=== PATIENT | female | born 1970 | race Caucasian/White ===

== ENCOUNTER → 2017-01-13 | Outpatient (CLI) | payer MEDICARE, OTHER ==
--- NOTE | 2017-01-14 07:52 | MM ---
Reason for exam: screening (asymptomatic). Last mammogram was performed 1 year and 8 months ago. History: Patient is nulliparous. Took hormonal contraceptives for 2 years. Physical Findings: A clinical breast exam by your physician is recommended on an annual basis and results should be correlated with mammographic findings. MG 3D Screening Mammo W/Cad Bilateral CC and MLO view(s) were taken. Prior study comparison: May 01, 2015, bilateral MG screening mammo w CAD. November 22, 2013, bilateral MG screening mammo w CAD. The breast tissue is heterogeneously dense. This may lower the sensitivity of mammography. No significant changes when compared with prior studies. ASSESSMENT: Benign, BI-RAD 2 RECOMMENDATION: Routine screening mammogram of both breasts in 1 year.
== END | disposition home or self-care (01) ==
LOC: RADMAMWWP 13:09
PROVIDERS: ATTEND Family Medicine
DX: Z12.31 Encounter for screening mammogram for malignant neoplasm of breast (principal)
CPT/HCPCS: 77063; G0202

== ENCOUNTER → 2017-01-27 | Outpatient (CLI) | payer MEDICARE, OTHER ==
--- NOTE | 2017-01-28 12:51 | WWHP ---
DATE OF SERVICE: 01/27/2017 CHIEF COMPLAINT: The patient is here for her routine gynecologic exam. HPI: This is a 46-year-old G0 with an LMP of approximately 01/11/17. She is status post tubal ligation. She states it has been more than 5 years since her last pelvic exam. She states over the past year her periods have been irregular. She has a very difficulty time to describing how often her periods are coming. She states that it can be unpredictable, but cannot say how often they are coming. The patient is a poor historian and her adult foster care shell shop supervisor is also unable to describe the frequency of her periods. She states they can vary in flow. She states she is not sexually active. PAST MEDICAL HISTORY: Seizure disorder, anxiety, depression, chronic hypertension, glaucoma and limited mental capacity. MEDICATIONS: 1. Travatan eye drops q.h.s. 2. Nystatin daily p.r.n. 3. Fluconazole 150 mg once weekly. 4. Lisinopril 10 mg daily. 5. Paroxetine 50 mg q.h.s. 6. Zyprexa generic 2.5 mg q.h.s. 7. Bromocriptine 2.5 mg daily. 8. Levothyroxine 112 mcg daily. 9. Vitamin D 50,000 units weekly. 10. Cosopt drops b.i.d. 11. Loratadine 10 mg daily. 12. Simvastatin 20 mg daily. 13. Fluticasone nasal spray 1 spray in each nostril daily. 14. Depakote ER generic 500 mg b.i.d. 15. Keppra generic 500 mg q.i.d. 16. ProAir HFA 1 to 2 puffs daily. 17. Bactroban ointment p.r.n. 18. Ammonium lactate 12% lotion p.r.n. 19. Ibuprofen p.r.n. 20. Nystop powder p.r.n. 21. Fiber supplement b.i.d. 22. Cranberry supplement b.i.d. 23. Vitamin C 500 mg q.a.m. Allergies to PENICILLIN. PAST SURGICAL HISTORY: Tubal ligation in the past. 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 Periods were regular up until about 1 year ago when they became more irregular. She has no history of STDs. SOCIAL HISTORY: She denies tobacco, alcohol and drug use. She has been with her boyfriend for 4 years, but is not sexually active. FAMILY HISTORY: Grandmother had lung cancer and breast cancer. REVIEW OF SYSTEMS: She believes she has lost about 10 to 15 pounds and this was after her Zyprexa dose was decreased and she thinks it may be related to that. She denies respiratory, cardiac or GI problems. PHYSICAL EXAM: Blood pressure 121/70. Height 5 feet 0 inches. Weight 241 pounds. Temperature 97.9. Pulse 72. This is a well-developed, obese white female who is alert and oriented x3 in no acute distress. HEENT: The eyes reveal moderate strabismus. HEENT is otherwise within normal limits. NECK: Supple without mass or thyromegaly. CHEST AND LUNGS: Clear to auscultation. HEART: Regular rate and rhythm. Breasts are without mass or discharge. Axillary exam is negative for adenopathy. BACK: Negative for CVA tenderness. ABDOMEN: Obese, soft, nontender without palpable masses. PELVIC EXAM: Normal external genitalia. Cervix and vagina reveal mild atrophy without lesions. The cervix appears somewhat stenotic secondary to atrophy. There is no unusual discharge. There is no cervical motion tenderness. The uterus is mid position, nongravid size and nontender. There are no palpable adnexal masses or tenderness. Rectal exam is negative for mass or tenderness and is negative for occult blood. EXTREMITIES: Nontender. IMPRESSION: 1. A 46-year-old perimenopausal female with some menstrual irregularity during the past. 2. The patient is a poor historian and has a difficult time describing her menstrual periods. 3. Multiple medical problems. PLAN: 1. Pap smear was performed. 2. Self-breast examination was discussed. 3. Mammogram was done on 01/13/17 and was benign and she will repeat this in one year. 4. The patient will keep a menstrual calendar. I have explained this to the patient and her foster care shell shop supervisor. She will return if she is having menstrual problems. 5. She will return in one year. [facility]ENTERBet[facility]
== END ==
LOC: WWCWWP 13:20
PROVIDERS: ATTEND Obstetrics & Gynecology
DX: Z01.419 Encounter for gynecological examination (general) (routine) without abnormal findings (principal)

== ENCOUNTER 2017-06-11 14:04 | Emergency (ER) | payer MEDICARE, OTHER ==
[2017-06-11] MEDS ORDERED: levETIRAcetam 500 MG TAB PO STA (15:37)
--- NOTE | 2017-06-11 16:18 | ED ---
GI Bleed HPI - General Chief complaint: GI Bleed Stated complaint: Rectrum bleeding Time Seen by Provider: 06/11/17 14:59 Source: patient Mode of arrival: ambulatory Limitations: altered mental status, physical limitation - History of Present Illness Initial comments: 47-year-old female with past medical history as noted below specifically for external hemorrhage presented for evaluation of rectal bleeding. She states that she had a large hard bowel movement which resulted in blood from the rectum. 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 This worried her and she came to the ED for further evaluation. She states that this is happened previously as well and she was treated as an outpatient. The bleeding has since stopped. - Related Data Home Medications Medication Instructions Recorded Confirmed Ascorbic Acid [Vitamin C] 500 mg PO DAILY 12/12/13 06/11/17 Bromocriptine Mesylate 2.5 mg PO DAILY 12/12/13 06/11/17 Cranberry Conc/C/Bacill Coag 1 tab PO BID 12/12/13 06/11/17 [Cranberry Tablet] Divalproex Sodium [Depakote ER] 500 mg PO BID 12/12/13 06/11/17 Travoprost [Travatan Z] 1 drop BOTH EYES HS 12/12/13 06/11/17 levETIRAcetam [Keppra] 500 mg PO QID 12/12/13 06/11/17 Spironolactone 50 mg PO DAILY 08/24/14 06/11/17 OLANZapine [ZyPREXA] 5 mg PO HS 12/18/14 06/11/17 Albuterol Sulfate [Proair Hfa] 1 - 2 puff INHALATION Q6HR PRN 06/11/17 06/11/17 Ammonium Lactate Lotion 1 applic TOPICAL DAILY PRN 06/11/17 06/11/17 [Lac-Hydrin 12% Lotion] Calcium Polycarbophil [Fibercon] 625 mg PO BID 06/11/17 06/11/17 Dorzolamide-Timolol 2%/0.5% 1 drop BOTH EYES BID 06/11/17 06/11/17 [dorzolamide-Timolol 2%/0.5%] Ergocalciferol (Vitamin D2) 50,000 unit PO SOTO 06/11/17 06/11/17 [Vitamin D2] Fluticasone Nasal [place] [Flonase 1 spray EA NOSTRIL DAILY 06/11/17 06/11/17 Nasal [place]] Ibuprofen [Motrin] 600 mg PO BID PRN 06/11/17 06/11/17 Levothyroxine Sodium [Synthroid] 112 mcg PO DAILY 06/11/17 06/11/17 Lisinopril [Prinivil] 10 mg PO HS 06/11/17 06/11/17 Loratadine [Claritin] 10 mg PO DAILY 06/11/17 06/11/17 Mupirocin 2% Oint [Bactroban 2% 1 applic TOPICAL BID PRN 06/11/17 06/11/17 Oint] Nystatin 100,000Unit/gm Cream 1 applic TOPICAL DAILY PRN 06/11/17 06/11/17 [Mycostatin Cream] PARoxetine HCL [Paxil] 30 mg PO HS 06/11/17 06/11/17 Simvastatin [Zocor] 20 mg PO HS 06/11/17 06/11/17 Previous Rx's Medication Instructions Recorded Docusate [Colace] 100 mg PO DAILY #20 capsule 06/11/17 Allergies Allergy/AdvReac Type Severity Reaction Status Date / Time Penicillins Allergy Rash/Hives Verified 06/11/17 15:24 quetiapine fumarate Allergy Anaphylaxis, Verified 06/11/17 15:24 [From Seroquel] SEIZURE Review of Systems ROS Statement: Those systems with pertinent positive or pertinent negative responses have been documented in the HPI. ROS Other: All systems not noted in ROS Statement are negative. Constitutional: Denies: fever, chills Eyes: Denies: eye pain, eye discharge ENT: Denies: ear pain, throat pain Respiratory: Denies: cough, dyspnea Cardiovascular: Denies: chest pain, palpitations Gastrointestinal: Reports: other (External hemorrhoids and hemorrhoid bleeding) . Denies: abdominal pain, nausea, vomiting Musculoskeletal: Denies: back pain, myalgia Neurological: Denies: headache, weakness Past Medical History Past Medical History: GI Bleed, Memory Impairment, Seizure Disorder History of Any Multi-Drug Resistant Organisms: None Reported Past Surgical History: Cholecystectomy, Tubal Ligation Past Anesthesia/Blood Transfusion Reactions: No Reported Reaction Past Psychological History: Anxiety, Depression, PTSD Smoking Status: Never smoker Past Alcohol Use History: None Reported Past Drug Use History: None Reported - Past Family History Mother Family Medical History: No Reported History Additional Family Medical History / Comment(s): BRAIN ANEURYSM General Exam Limitations: altered mental status, physical limitation General appearance: alert, in no apparent distress Head exam: Present: atraumatic, normocephalic, normal inspection Eye exam: Present: normal appearance, PERRL, EOMI. Absent: scleral icterus, conjunctival injection, periorbital swelling Respiratory exam: Present: normal lung sounds bilaterally. Absent: respiratory distress, wheezes, rales, rhonchi, stridor Cardiovascular Exam: Present: regular rate, normal rhythm, normal heart sounds. Absent: systolic murmur, diastolic murmur, rubs, gallop, clicks GI/Abdominal exam: Present: soft, normal bowel sounds. Absent: distended, tenderness, guarding, rebound, rigid Rectal exam: Present: hemorrhoids (External with one open hemorrhoid, bleeding controlled; this hemorrhage is not thrombosed or requiring excision) Extremities exam: Present: normal inspection, full ROM, normal capillary refill. Absent: tenderness, pedal edema, joint swelling, calf tenderness Back exam: Present: normal inspection Psychiatric exam: Present: normal affect, normal mood Skin exam: Present: warm, dry, intact, normal color. Absent: rash Course Vital Signs 06/11/17 06/11/17 14:24 16:29 Temperature 98.1 F 98.2 F Pulse Rate 93 76 Respiratory 17 18 Rate Blood Pressure 110/66 118/71 O2 Sat by Pulse 95 98 Oximetry Medical Decision Making - Medical Decision Making 47-year-old female with past medical history of external hemorrhage presented for evaluation of rectal bleeding. On physical examination there is an external hemorrhoid that is newly clotted over and likely the source of her bleeding. The remainder of her physical exam is benign. Bleeding is likely secondary to her large and firm bowel movement that she states occurred just prior to the rectal bleeding. She was informed of this and advised to perform sitz baths 4-5 times a day and that she would be prescribed stool softeners. Further advised follow-up with her primary care physician. Her primary care physician was contacted and stated that he would follow-up for next week. The patient was informed of this and agreed with this plan of care. Disposition Clinical Impression: External hemorrhoid, bleeding Disposition: HOME SELF-CARE Condition: Stable Instructions: Hemorrhoids (ED), Rectal Bleeding (ED) Additional Instructions: Please use medication as discussed. Please follow up with family doctor if symptoms have not improved over the next two days. Please return to the emergency room if your symptoms increase or worsen or for any other concerns. Discussed the proper procedures for sitz baths and what should be obtained in order to her them with your primary care physician. Prescriptions: Docusate [Colace] 100 mg PO DAILY #20 capsule Referrals: Abhishek Plata PAC [Primary Care Provider] - 1-2 days Time of Disposition: 16:18
[2017-06-11 16:30] VITALS: BP 118/71; PULSE 76; RESP 18; TEMP 98.2
== END 2017-06-11 16:30 | disposition home or self-care (01) ==
LOC: EC 14:04
DX: K64.4 Residual hemorrhoidal skin tags (principal); R41.82 Altered mental status, unspecified; G40.909 Epilepsy, unspecified, not intractable, without status epilepticus; F32.9 Major depressive disorder, single episode, unspecified; F41.9 Anxiety disorder, unspecified; F43.10 Post-traumatic stress disorder, unspecified; Z79.51 Long term (current) use of inhaled steroids; Z79.899 Other long term (current) drug therapy; Z88.0 Allergy status to penicillin; Z88.8 Allergy status to other drugs, medicaments and biological substances
CPT/HCPCS: 99284

== ENCOUNTER 2017-12-17 16:50 | Emergency (ER) | payer MEDICARE, OTHER ==
[2017-12-17 17:04] VITALS: RESP 18
[2017-12-17] MEDS ORDERED: SODIUM CHLORIDE 0.9% 500 ML IV STA (17:18)
--- NOTE | 2017-12-17 17:23 | ED ---
Seizure HPI - General Chief Complaint: Seizure Stated Complaint: seizure Time Seen by Provider: 12/17/17 17:05 Source: EMS Mode of arrival: EMS Limitations: no limitations - History of Present Illness Initial Comments: 47-year-old female patient with past medical history significant for seizures, pseudoseizures, and develop mental disability presents to the emergency department today for possible seizure. Patient is a somewhat poor historian. She states that [place] on the city bus when bystanders reported she began shaking and slid to the floor. Patient states she does not remember the incident. She denies any loss of bowel or bladder control with this. States that she does have a mild frontal headache at this time. States that she has fallen several times over the last couple of months because she is unsteady and has to use a cane. She states that she has been getting frequent headaches. She denies any numbness or tingling, nausea, vomiting, weakness, blurred vision , or double vision. She does take Keppra for seizures, states that she lives at an adult foster care and they do dispense her medications. Patient states that she has not had a period for the last 3 months however I does have a history of tubal ligation. She denies any drug or alcohol use. Patient denies any recent rash, fever, chills, shortness breath, chest pain, abdominal pain, diarrhea, constipation, back pain, hematuria, dysuria, urinary urgency, urinary frequency, or any other complaints. - Related Data Home Medications Medication Instructions Recorded Confirmed Ascorbic Acid [Vitamin C] 500 mg PO DAILY 12/12/13 12/17/17 Bromocriptine Mesylate 2.5 mg PO DAILY 12/12/13 12/17/17 Cranberry Conc/C/Bacill Coag 1 tab PO BID 12/12/13 12/17/17 [Cranberry Tablet] Divalproex Sodium [Depakote ER] 500 mg PO BID 12/12/13 12/17/17 Travoprost [Travatan Z] 1 drop BOTH EYES 12/12/13 12/17/17 levETIRAcetam [Keppra] 500 mg PO QID 12/12/13 12/17/17 Spironolactone 50 mg PO DAILY 08/24/14 12/17/17 OLANZapine [ZyPREXA] 5 mg PO HS 12/18/14 12/17/17 Albuterol Sulfate [Proair Hfa] 1 - 2 puff INHALATION RT-DAILY PRN 06/11/1712/17 Ammonium Lactate Lotion 1 applic TOPICAL DAILY PRN 06/11/17 12/17/17 [Lac-Hydrin 12% Lotion] Calcium Polycarbophil [Fibercon] 625 mg PO BID 06/11/17 12/17/17 Dorzolamide-Timolol 2%/0.5% 1 drop BOTH EYES BID 06/11/17 12/17/17 [dorzolamide-Timolol 2%/0.5%] Ergocalciferol (Vitamin D2) 50,000 unit PO SOTO 06/11/17 12/17/17 [Vitamin D2] Fluticasone Nasal [place] [Flonase 1 spray EA NOSTRIL DAILY 06/11/17 12/17/17 Nasal [place]] Ibuprofen [Motrin] 600 mg PO BID PRN 06/11/17 12/17/17 Levothyroxine Sodium [Synthroid] 112 mcg PO DAILY 06/11/17 12/17/17 Lisinopril [Prinivil] 10 mg PO HS 06/11/17 12/17/17 Loratadine [Claritin] 10 mg PO DAILY 06/11/17 12/17/17 Mupirocin 2% Oint [Bactroban 2% 1 applic TOPICAL BID PRN 06/11/17 12/17/17 Oint] Nystatin 100,000Unit/gm Cream 1 applic TOPICAL HS PRN 06/11/17 12/17/17 [Mycostatin Cream] PARoxetine HCL [Paxil] 30 mg PO HS 06/11/17 12/17/17 Simvastatin [Zocor] 20 mg PO HS 06/11/17 12/17/17 Allergies Allergy/AdvReac Type Severity Reaction Status Date / Time Penicillins Allergy Rash/Hives Verified 12/17/17 17:09 quetiapine fumarate Allergy Anaphylaxis, Verified 12/17/17 17:09 [From Seroquel] SEIZURE Review of Systems ROS Statement: Those systems with pertinent positive or pertinent negative responses have been documented in the HPI. ROS Other: All systems not noted in ROS Statement are negative. Past Medical History Past Medical History: GI Bleed, Memory Impairment, Seizure Disorder History of Any Multi-Drug Resistant Organisms: None Reported Past Surgical History: Cholecystectomy, Tubal Ligation Past Anesthesia/Blood Transfusion Reactions: No Reported Reaction Past Psychological History: Anxiety, Depression, PTSD Smoking Status: Never smoker Past Alcohol Use History: None Reported Past Drug Use History: None Reported - Past Family History Mother Family Medical History: No Reported History Additional Family Medical History / Comment(s): BRAIN ANEURYSM General Exam Limitations: no limitations General appearance: alert, in no apparent distress, other (This is a well- developed, obese adult female patient in no acute distress. Vital signs upon presentation are temperature 96.4F, pulse 78, respirations 18, blood pressure 123/76, pulse ox 97% on room air.) Head exam: Present: atraumatic, normocephalic, normal inspection Eye exam: Present: normal appearance, PERRL, EOMI. Absent: scleral icterus, conjunctival injection, nystagmus, periorbital swelling ENT exam: Present: normal exam, normal oropharynx, mucous membranes moist Respiratory exam: Present: normal lung sounds bilaterally. Absent: respiratory distress, wheezes, rales, rhonchi, stridor Cardiovascular Exam: Present: regular rate, normal rhythm, normal heart sounds. Absent: systolic murmur, diastolic murmur, rubs, gallop, clicks GI/Abdominal exam: Present: soft, normal bowel sounds. Absent: distended, tenderness, guarding, rebound, rigid Neurological exam: Present: alert, oriented X3, CN II-XII intact Expanded Speech: Present: fluid speech Cranial nerves: EOM's Intact: Normal, Nystagmus: Normal Motor strength exam: RUE: 5, LUE: 5, RLE: 5, LLE: 5 Psychiatric exam: Present: anxious Skin exam: Present: warm, dry, intact, normal color. Absent: rash Course Vital Signs 12/17/17 16:53 Temperature 96.4 F L Pulse Rate 78 Respiratory 18 Rate Blood Pressure 123/76 O2 Sat by Pulse 97 Oximetry Medical Decision Making - Medical Decision Making 47-year-old female patient presents to the emergency department today for evaluation after having a seizure. Physical examination is unremarkable. Patient is neurologically intact. Labs reviewed and are unremarkable. Urinalysis is negative for any infection. Drug screen is negative. We did perform CT of the brain due to patient's complaint of frontal headaches and frequent falls recently. 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 I did discuss findings and results with the patient. She will be discharged back to her adult foster care. She is instructed to follow-up with a neurologist for further evaluation, she sees Dr. Dodson. She is instructed to follow-up with her primary care physician for recheck in 1-2 days. Return parameters discussed in detail. She verbalizes understanding and agrees with this plan. Guardian will be updated. - Lab Data Result diagrams: 12/17/17 17:06 12/17/17 17:06 Lab Results 12/17/17 12/17/17 12/17/17 Range/Units 17:06 17:06 18:50 WBC 7.0 (3.8-10.6) k/uL RBC 3.95 (3.80-5.40) m/uL Hgb 12.3 (11.4-16.0) gm/dL Hct 36.5 (34.0-46.0) % MCV 92.3 (80.0-100.0) fL MCH 31.2 (25.0-35.0) pg MCHC 33.7 (31.0-37.0) g/dL RDW 12.4 (11.5-15.5) % Plt Count 189 (150-450) k/uL Neutrophils % 50 % Lymphocytes % 42 % Monocytes % 6 % Eosinophils % 1 % Basophils % 0 % Neutrophils # 3.5 (1.3-7.7) k/uL Lymphocytes # 2.9 (1.0-4.8) k/uL Monocytes # 0.4 (0-1.0) k/uL Eosinophils # 0.0 (0-0.7) k/uL Basophils # 0.0 (0-0.2) k/uL Sodium 139 (137-145) mmol/L Potassium 4.3 (3.5-5.1) mmol/L Chloride 103 (98-107) mmol/L Carbon Dioxide 23 (22-30) mmol/L Anion Gap 13 mmol/L BUN 15 (7-17) mg/dL Creatinine 0.70 (0.52-1.04) mg/dL Est GFR (CKD-EPI)AfAm >90 (>60 ml/min/1.73 sqM) Est GFR (CKD-EPI)NonAf >90 (>60 ml/min/1.73 sqM) Glucose 91 (74-99) mg/dL Calcium 9.1 (8.4-10.2) mg/dL Total Bilirubin 0.3 (0.2-1.3) mg/dL AST 20 (14-36) U/L ALT 23 (9-52) U/L Alkaline Phosphatase 45 (38-126) U/L Total Protein 7.1 (6.3-8.2) g/dL Albumin 4.1 (3.5-5.0) g/dL Urine Color Yellow Urine Appearance Cloudy H (Clear) Urine pH 5.5 (5.0-8.0) Ur Specific [place] 1.019 (1.001-1.035) Urine Protein Negative (Negative) Urine Glucose (UA) Negative (Negative) Urine Ketones Trace H (Negative) Urine Blood Negative (Negative) Urine Nitrite Negative (Negative) Urine Bilirubin Negative (Negative) Urine Urobilinogen <2.0 (<2.0) mg/dL Ur Leukocyte Esterase Trace H (Negative) Urine WBC 2 (0-5) /hpf Ur Squamous Epith Cells 4 (0-4) /hpf Urine Mucus Rare H (None) /hpf Urine HCG, Qual (Not Detectd) Urine Opiates Screen Not Detected (NotDetected) Ur Oxycodone Screen Not Detected (NotDetected) Urine Methadone Screen Not Detected (NotDetected) Ur Propoxyphene Screen Not Detected (NotDetected) Ur Barbiturates Screen Not Detected (NotDetected) U Tricyclic Antidepress Not Detected (NotDetected) Ur Phencyclidine Scrn Not Detected (NotDetected) Ur Amphetamines Screen Not Detected (NotDetected) U Methamphetamines Scrn Not Detected (NotDetected) U Benzodiazepines Scrn Not Detected (NotDetected) Urine Cocaine Screen Not Detected (NotDetected) U Marijuana (THC) Screen Not Detected (NotDetected) 12/17/17 Range/Units 18:50 WBC (3.8-10.6) k/uL RBC (3.80-5.40) m/uL Hgb (11.4-16.0) gm/dL Hct (34.0-46.0) % MCV (80.0-100.0) fL MCH (25.0-35.0) pg MCHC (31.0-37.0) g/dL RDW (11.5-15.5) % Plt Count (150-450) k/uL Neutrophils % % Lymphocytes % % Monocytes % % Eosinophils % % Basophils % % Neutrophils # (1.3-7.7) k/uL Lymphocytes # (1.0-4.8) k/uL Monocytes # (0-1.0) k/uL Eosinophils # (0-0.7) k/uL Basophils # (0-0.2) k/uL Sodium (137-145) mmol/L Potassium (3.5-5.1) mmol/L Chloride (98-107) mmol/L Carbon Dioxide (22-30) mmol/L Anion Gap mmol/L BUN (7-17) mg/dL Creatinine (0.52-1.04) mg/dL Est GFR (CKD-EPI)AfAm (>60 ml/min/1.73 sqM) Est GFR (CKD-EPI)NonAf (>60 ml/min/1.73 sqM) Glucose (74-99) mg/dL Calcium (8.4-10.2) mg/dL Total Bilirubin (0.2-1.3) mg/dL AST (14-36) U/L ALT (9-52) U/L Alkaline Phosphatase (38-126) U/L Total Protein (6.3-8.2) g/dL Albumin (3.5-5.0) g/dL Urine Color Urine Appearance (Clear) Urine pH (5.0-8.0) Ur Specific [place] (1.001-1.035) Urine Protein (Negative) Urine Glucose (UA) (Negative) Urine Ketones (Negative) Urine Blood (Negative) Urine Nitrite (Negative) Urine Bilirubin (Negative) Urine Urobilinogen (<2.0) mg/dL Ur Leukocyte Esterase (Negative) Urine WBC (0-5) /hpf Ur Squamous Epith Cells (0-4) /hpf Urine Mucus (None) /hpf Urine HCG, Qual Not Detected (Not Detectd) Urine Opiates Screen (NotDetected) Ur Oxycodone Screen (NotDetected) Urine Methadone Screen (NotDetected) Ur Propoxyphene Screen (NotDetected) Ur Barbiturates Screen (NotDetected) U Tricyclic Antidepress (NotDetected) Ur Phencyclidine Scrn (NotDetected) Ur Amphetamines Screen (NotDetected) U Methamphetamines Scrn (NotDetected) U Benzodiazepines Scrn (NotDetected) Urine Cocaine Screen (NotDetected) U Marijuana (THC) Screen (NotDetected) - EKG Data -: EKG Interpreted by Me EKG Comments: EKG obtained at 1737 shows normal sinus rhythm with a ventricular rate is 78, NH interval 138, QR presybeterian 72, QT 376, QTc 428. No evidence of ST elevation or depression, no ectopy. - Radiology Data Radiology results: report reviewed, image reviewed CT of the head without contrast was performed. 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 There is encephalomalacia also on the left temporal lobe and parietal lobe. There is no midline shift. There is no evidence of intracranial hemorrhage. Calvarium is intact. Impression by Dr. Kam shows bilateral temporal lobe and parietal lobe encephalomalacia. No acute intracranial abnormality. Disposition Clinical Impression: Seizure Disposition: HOME SELF-CARE Condition: Good Instructions: Recurrent Seizures in Adults (ED) Additional Instructions: Follow-up with the primary care physician for recheck in 1-2 days. Continue taking medications as directed. Follow-up with your primary care physician for recheck in 1-2 days. Return here immediately for any new, worsening, or concerning symptoms. Is patient prescribed a controlled substance at d/c from ED?: No Referrals: Abhishek Elise MD [Primary Care Provider] - 1-2 days Time of Disposition: 19:19
[2017-12-17 17:37] LABS: Basophils % (A) 0 %; Eosinophils % (A) 1 %; HCT 36.5 % (34.0-46.0); HGB 12.3 gm/dL (11.4-16.0); Lymphocytes # (A) 2.9 k/uL (1.0-4.8); Lymphocytes % (A) 42 %; MCH 31.2 pg (25.0-35.0); MCHC 33.7 g/dL (31.0-37.0); MCV 92.3 fL (80.0-100.0); Mean Platelet Volume 8.9; Monocytes # (A) 0.4 k/uL (0-1.0); Monocytes % (A) 6 %; Neutrophils # (A) 3.5 k/uL (1.3-7.7); Neutrophils % (A) 50 %; Platelet Count 189 k/uL (150-450); RBC 3.95 m/uL (3.80-5.40); RDW 12.4 % (11.5-15.5)
[2017-12-17 17:49] LABS: ALT 23 U/L (9-52); AST 20 U/L (14-36); Albumin 4.1 g/dL (3.5-5.0); Alkaline Phosphatase 45 U/L (38-126); Anion Gap 13 mmol/L; Blood Urea Nitrogen 15 mg/dL (7-17); Calcium 9.1 mg/dL (8.4-10.2); Carbon Dioxide 23 mmol/L (22-30); Chloride 103 mmol/L (98-107); Glucose 91 mg/dL (74-99); Potassium 4.3 mmol/L (3.5-5.1); Sodium 139 mmol/L (137-145); Total Bilirubin 0.3 mg/dL (0.2-1.3); Total Protein 7.1 g/dL (6.3-8.2)
--- NOTE | 2017-12-17 18:25 | CT ---
EXAMINATION TYPE: CT brain wo con DATE OF EXAM: 12/17/2017 COMPARISON: NONE HISTORY: Seizure activity. CT DLP: 1121 mGycm. Automated Exposure Control for Dose Reduction was Utilized. TECHNIQUE: CT scan of the head is performed without contrast. 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 There is encephalomalacia also in the left temporal l obe and parietal lobe. There is no midline shift. There is no evidence of intracranial hemorrhage. Ca lvarium is intact. IMPRESSION: Bilateral temporal lobe and parietal lobe encephalomalacia. No acute intracranial abnormality.
[2017-12-17 18:55] LABS: Appearance,Urine Cloudy (Clear); Bilirubin,Urine Negative (Negative); Blood,Urine Negative (Negative); Color,Urine Yellow; Glucose,Urine (UA) Negative (Negative); Ketones,Urine Trace (Negative); Leukocyte Esterase,Urine Trace (Negative); Mucus,Urine Rare /hpf; Nitrite,Urine Negative (Negative); PH, Urine 5.5 (5.0-8.0); Protein,Urine Negative (Negative); Specific Gravity,Urine 1.019 (1.001-1.035); Squamous Epithelial Cell,Urine 4 /hpf (0-4); Urobilinogen,Urine <2.0 mg/dL (<2.0); WBC,Urine 2 /hpf (0-5)
[2017-12-17 19:03] LABS: Amphetamine Screen,Urine Not Detected (NotDetected); Barbiturate Screen,Urine Not Detected (NotDetected); Benzodiazepines Screen,Urine Not Detected (NotDetected); Cocaine Screen,Urine Not Detected (NotDetected); Methadone Screen, Urine Not Detected (NotDetected); Opiate Screen,Urine Not Detected (NotDetected); Oxycodone Screen, Urine Not Detected (NotDetected); Phencyclidine Screen,Urine Not Detected (NotDetected); Tricyclic Antidepressant,Urine Not Detected (NotDetected); Urn Cannabinoid Scrn Not Detected (NotDetected)
[2017-12-17] MEDS ORDERED: levETIRAcetam 500 MG TAB PO STA (19:18)
[2017-12-17 19:56] VITALS: BP 121/64; PULSE 90; TEMP 98
== END 2017-12-17 20:00 | disposition home or self-care (01) ==
LOC: EC 16:50 → SUPCPDRO 16:50 → EC 20:00
DX: G40.909 Epilepsy, unspecified, not intractable, without status epilepticus (principal); F32.9 Major depressive disorder, single episode, unspecified; F41.9 Anxiety disorder, unspecified; F43.10 Post-traumatic stress disorder, unspecified; Z79.51 Long term (current) use of inhaled steroids; Z79.899 Other long term (current) drug therapy; Z88.0 Allergy status to penicillin; Z88.8 Allergy status to other drugs, medicaments and biological substances
CPT/HCPCS: 36415; 70450; 80053; 80177; 80306; 81001; 81025; 85025; 93005; 96360; 96361; 99285

== ENCOUNTER → 2018-06-24 | Outpatient (CLI) | payer MEDICARE, OTHER ==
--- NOTE | 2018-07-01 14:26 | MM ---
Reason for exam: screening (asymptomatic). Last mammogram was performed 1 year and 5 months ago. History: Patient is nulliparous. Took hormonal contraceptives for 2 years. MG 3D Screening Mammo W/Cad Bilateral CC and MLO view(s) were taken. Prior study comparison: January 13, 2017, bilateral MG 3d screening mammo w/cad. May 01, 2015, bilateral MG screening mammo w CAD. The breast tissue is heterogeneously dense. This may lower the sensitivity of mammography. No significant changes when compared with prior studies. ASSESSMENT: Benign, BI-RAD 2 RECOMMENDATION: Routine screening mammogram of both breasts in 1 year.
== END | disposition home or self-care (01) ==
LOC: RADMAMWWP 10:47
PROVIDERS: ATTEND Physician Assistant Medical
DX: Z12.31 Encounter for screening mammogram for malignant neoplasm of breast (principal)
CPT/HCPCS: 77063; 77067

== ENCOUNTER → 2018-08-03 | Outpatient (CLI) | payer MEDICARE, OTHER ==
[2018-08-03 15:49] VITALS: BP 112/75; PULSE 75; RESP 18; TEMP 97.9; BMI 43.1
--- NOTE | 2018-08-03 17:14 | P.HPOB ---
History of Present Illness H&P Date: 08/03/18 Chief Complaint: The patient is here for her routine gynecologic exam. This is a 48-year-old G0 with an LMP of April 2018. The patient's menses have been coming less frequently. In 2018 she states she had menstrual periods in July, August, September, and April. She denies hot flashes. She is without gynecologic complaints. She has not been sexually active for many years. Review of Systems She has lost 20 pounds over the last one and half years. She denies respiratory , cardiac or G.I. problems. Past Medical History Past Medical History: GI Bleed, Hypertension, Memory Impairment, Seizure Disorder Additional Past Medical History / Comment(s): Mental disability. Glaucoma. 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 History of Any Multi-Drug Resistant Organisms: None Reported Past Surgical History: Cholecystectomy, Tubal Ligation Past Anesthesia/Blood Transfusion Reactions: No Reported Reaction Past Psychological History: Anxiety, Depression, PTSD Smoking Status: Never smoker Past Alcohol Use History: None Reported Past Drug Use History: None Reported - Past Family History Mother Family Medical History: No Reported History Additional Family Medical History / Comment(s): BRAIN ANEURYSM. Grandmother had lung and breast cancer. Medications and Allergies Home Medications Medication Instructions Recorded Confirmed Type Ascorbic Acid [Vitamin C] 500 mg PO DAILY 12/12/13 08/03/18 History Bromocriptine Mesylate 2.5 mg PO DAILY 12/12/13 08/03/18 History Cranberry Conc/C/Bacill Coag 1 tab PO BID 12/12/13 08/03/18 History [Cranberry Tablet] Divalproex Sodium [Depakote ER] 500 mg PO BID 12/12/13 08/03/18 History Travoprost [Travatan Z] 1 drop BOTH EYES HS 12/12/13 08/03/18 History levETIRAcetam [Keppra] 500 mg PO QID 12/12/13 08/03/18 History Spironolactone 50 mg PO DAILY 08/24/14 08/03/18 History OLANZapine [ZyPREXA] 5 mg PO HS 12/18/14 08/03/18 History Albuterol Sulfate [Proair Hfa] 1 - 2 puff INHALATION RT-DAILY PRN 06/11/1708/03 History Ammonium Lactate Lotion 1 applic TOPICAL DAILY PRN 06/11/17 08/03/18 History [Lac-Hydrin 12% Lotion] Calcium Polycarbophil [Fibercon] 625 mg PO BID 06/11/17 08/03/18 History Dorzolamide-Timol 2.23%/0.68% 1 drop BOTH EYES BID 06/11/17 08/03/18 History [dorzolamide-Timolol 2%/0.5%] Ergocalciferol (Vitamin D2) 50,000 unit PO SOTO 06/11/17 08/03/18 History [Vitamin D2] Fluticasone Nasal [place] [Flonase 1 spray EA NOSTRIL DAILY 06/11/17 08/03/18 History Nasal [place]] Ibuprofen [Motrin] 600 mg PO BID PRN 06/11/17 08/03/18 History Levothyroxine Sodium [Synthroid] 112 mcg PO DAILY 06/11/17 08/03/18 History Lisinopril [Prinivil] 10 mg PO HS 06/11/17 08/03/18 History Loratadine [Claritin] 10 mg PO DAILY 06/11/17 08/03/18 History Mupirocin 2% Oint [Bactroban 2% 1 applic TOPICAL BID PRN 06/11/17 08/03/18 History Oint] Nystatin 100,000Unit/gm Cream 1 applic TOPICAL HS PRN 06/11/17 08/03/18 History [Mycostatin Cream] PARoxetine HCL [Paxil] 30 mg PO HS 06/11/17 08/03/18 History Simvastatin [Zocor] 20 mg PO HS 06/11/17 08/03/18 History ARIPiprazole [Abilify] 2 mg PO DAILY 08/03/18 08/03/18 History Albuterol Sulfate [Proair Hfa] 1 - 2 puff INHALATION Q6HR PRN 08/03/18 08/03/18 History Ammonium Lactate Lotion 1 applic TOPICAL BID 08/03/18 08/03/18 History [Lac-Hydrin 12% Lotion] Docusate [Colace] 100 mg PO DAILY 08/03/18 08/03/18 History OLANZapine [ZyPREXA] 2.5 mg PO HS 08/03/18 08/03/18 History Allergies Allergy/AdvReac Type Severity Reaction Status Date / Time Penicillins Allergy Rash/Hives Verified 08/03/18 15:50 quetiapine fumarate Allergy Anaphylaxis, Verified 08/03/18 15:50 [From Seroquel] SEIZURE Exam Vital Signs Temp Pulse Resp BP Pulse Ox 08/03/18 15:42 97.9 F 75 18 112/75 100 Intake and Output 08/03/18 08/03/18 08/03/18 06:59 14:59 22:59 Other: Weight 100.244 kg Height 5'0", weight 221 pounds, BMI 43.2. This is a well-developed well-nourished obese white female who is alert and oriented times 3 in no acute distress. HEENT: eyes are not in line. HEENT is otherwise within normal limits. NECK: Supple without mass or thyromegaly. CHEST AND LUNGS: Clear to auscultation. HEART: Regular rate and rhythm. BREASTS: Are without mass or discharge. AXILLARY EXAM: Negative for adenopathy. BACK: Negative for CVA tenderness. ABDOMEN: Soft, obese, nontender, without palpable masses. PELVIC EXAM: Normal external genitalia. Cervix and vagina appear normal. There is no unusual discharge. There is no evidence of prolapse. The uterus is midposition, nongravid size and nontender. There are no palpable adnexal masses or tenderness. Bimanual examination is somewhat limited secondary to her size. RECTAL EXAM: rectovaginal exam is negative for mass or tenderness and is negative for occult blood. EXTREMITIES: Nontender. IMPRESSION: 1. 48-year-old perimenopausal female with oligomenorrhea. 2. Obesity 3. Multiple medical problems. PLAN: 1. Pap smear was deferred since she had a normal one less than 2 years ago. 2. Self breast awareness was discussed with the patient. 3. Mammogram was recently done on 06/24/2018 and was benign. 4. She will keep a menstrual calendar. She will call of problems. 5. Osteoporosis prevention was discussed. I have stressed the importance of adequate calcium, vitamin D and regular exercise. Recommended amounts of calcium and vitamin D were also discussed. 6. She will return in one year.
== END | disposition home or self-care (01) ==
LOC: WWCWWP 14:45
PROVIDERS: ATTEND Obstetrics & Gynecology
DX: Z53.9 Procedure and treatment not carried out, unspecified reason (principal)

== ENCOUNTER → 2019-08-16 | Outpatient (CLI) | payer MEDICARE, OTHER ==
[2019-08-16 10:35] LABS: Basophils % (A) 0 %; Eosinophils % (A) 1 %; HCT 37.8 % (34.0-46.0); HGB 12.5 gm/dL (11.4-16.0); Lymphocytes % (A) 38 %; MCH 30.7 pg (25.0-35.0); MCV 93.2 fL (80.0-100.0); Mean Platelet Volume 9.1; Monocytes # (A) 0.3 k/uL (0-1.0); Monocytes % (A) 5 %; Neutrophils # (A) 2.8 k/uL (1.3-7.7); Neutrophils % (A) 54 %; Platelet Count 209 k/uL (150-450); RBC 4.06 m/uL (3.80-5.40); RDW 11.9 % (11.5-15.5); WBC 5.3 k/uL (3.8-10.6)
[2019-08-16 17:03] LABS: ALT 14 U/L (8-44); AST 15 U/L (13-35); Albumin/Globulin Ratio 1.56 (1.60-3.17); Alkaline Phosphatase 53 U/L (41-126); Bilirubin, Conjugated <0.20 mg/dL (0.20-0.40); Chol/HDL Ratio 3.12; Cholesterol 153 mg/dL (0-200); Globulin 2.5 g/dL (1.6-3.3); Glucose 95 mg/dL (70-110); Total Bilirubin 0.2 mg/dL (0.2-1.2); Total Protein 6.4 g/dL (6.2-8.2)
[2019-08-16 18:30] LABS: Hemoglobin A1C 5.4 % (4.0-6.0)
== END | disposition home or self-care (01) ==
LOC: LABWHC1 08:45
PROVIDERS: ATTEND Nurse Practitioner Family
DX: Z51.81 Encounter for therapeutic drug level monitoring (principal); Z79.899 Other long term (current) drug therapy
CPT/HCPCS: 36415; 80061; 80076; 82947; 83036; 84439; 84443; 85025

== ENCOUNTER 2020-11-25 18:47 | Emergency (ER) | payer MEDICARE, OTHER ==
[2020-11-25 19:11] VITALS: BP 146/81; PULSE 95; RESP 20; TEMP 98.6
--- NOTE | 2020-11-25 20:31 | ED ---
General Adult HPI - General Chief complaint: Fall Stated complaint: Fall/head injury Time Seen by Provider: 11/25/20 19:51 Source: patient, RN notes reviewed, old records reviewed Mode of arrival: ambulatory Limitations: no limitations - History of Present Illness Initial comments: 50-year-old female presenting status post fall with head injury and low back pain. Patient states she fell onto her bottom. She states she tripped and then subsequently fell later in the day injuring her left forehead. No loss consciousness, no anticoagulation. Patient has a history of strabismus, cataract, memory impairment. Denies any preceding chest pain dyspnea or palpitations. She has been drinking well. No fevers. No abdominal pain. - Related Data Home Medications Medication Instructions Recorded Confirmed Ascorbic Acid [Vitamin C] 500 mg PO DAILY 12/12/13 08/03/18 Bromocriptine Mesylate 2.5 mg PO DAILY 12/12/13 08/03/18 Cranberry Conc/C/Bacill Coag 1 tab PO BID 12/12/13 08/03/18 [Cranberry Tablet] Divalproex Sodium [Depakote ER] 500 mg PO BID 12/12/13 08/03/18 Travoprost [Travatan Z] 1 drop BOTH EYES HS 12/12/13 08/03/18 levETIRAcetam [Keppra] 500 mg PO QID 12/12/13 08/03/18 Spironolactone 50 mg PO DAILY 08/24/14 08/03/18 OLANZapine [ZyPREXA] 5 mg PO HS 12/18/14 08/03/18 Albuterol Sulfate [Proair Hfa] 1 - 2 puff INHALATION RT-DAILY PRN 06/11/17 08/03/18 Ammonium Lactate Lotion 1 applic TOPICAL DAILY PRN 06/11/17 08/03/18 [Lac-Hydrin 12% Lotion] Calcium Polycarbophil [Fibercon] 625 mg PO BID 06/11/17 08/03/18 Dorzolamide-Timol 2.23%/0.68% 1 drop BOTH EYES BID 06/11/17 08/03/18 [dorzolamide-Timolol 2%/0.5%] Ergocalciferol (Vitamin D2) 50,000 unit PO SOTO 06/11/17 08/03/18 [Vitamin D2] Fluticasone Nasal [place] [Flonase 1 spray EA NOSTRIL DAILY 06/11/17 08/03/18 Nasal [place]] Ibuprofen [Motrin] 600 mg PO BID PRN 06/11/17 08/03/18 Levothyroxine Sodium [Synthroid] 112 mcg PO DAILY 06/11/17 08/03/18 Lisinopril [Prinivil] 10 mg PO HS 06/11/17 08/03/18 Loratadine [Claritin] 10 mg PO DAILY 06/11/17 08/03/18 Mupirocin 2% Oint [Bactroban 2% 1 applic TOPICAL BID PRN 06/11/17 08/03/18 Oint] Nystatin 100,000Unit/gm Cream 1 applic TOPICAL HS PRN 06/11/17 08/03/18 [Mycostatin Cream] PARoxetine HCL [Paxil] 30 mg PO HS 06/11/17 08/03/18 Simvastatin [Zocor] 20 mg PO HS 06/11/17 08/03/18 ARIPiprazole [Abilify] 2 mg PO DAILY 08/03/18 08/03/18 Albuterol Sulfate [Proair Hfa] 1 - 2 puff INHALATION Q6HR PRN 08/03/18 08/03/18 Ammonium Lactate Lotion 1 applic TOPICAL BID 08/03/18 08/03/18 [Lac-Hydrin 12% Lotion] Docusate [Colace] 100 mg PO DAILY 08/03/18 08/03/18 OLANZapine [ZyPREXA] 2.5 mg PO HS 08/03/18 08/03/18 Allergies Allergy/AdvReac Type Severity Reaction Status Date / Time Penicillins Allergy Rash/Hives Verified 11/25/20 18:56 quetiapine fumarate Allergy Anaphylaxis, Verified 11/25/20 18:56 [From Seroquel] SEIZURE Review of Systems ROS Statement: Those systems with pertinent positive or pertinent negative responses have been documented in the HPI. ROS Other: All systems not noted in ROS Statement are negative. Past Medical History Past Medical History: GI Bleed, Hypertension, Memory Impairment, Seizure Disorder Additional Past Medical History / Comment(s): Mental disability. Glaucoma. 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 History of Any Multi-Drug Resistant Organisms: None Reported Past Surgical History: Cholecystectomy, Tubal Ligation Past Anesthesia/Blood Transfusion Reactions: No Reported Reaction Past Psychological History: Anxiety, Depression, PTSD Past Alcohol Use History: None Reported Past Drug Use History: None Reported - Past Family History Mother Family Medical History: No Reported History Additional Family Medical History / Comment(s): BRAIN ANEURYSM. Grandmother had lung and breast cancer. General Exam Limitations: no limitations General appearance: alert, in no apparent distress Head exam: Present: atraumatic, normocephalic, other (Superficial abrasion, left forehead) Eye exam: Present: PERRL, other (Strabismus, left eye lateral gaze) ENT exam: Present: normal exam Neck exam: Present: normal inspection. Absent: tenderness, meningismus Respiratory exam: Present: normal lung sounds bilaterally. Absent: respiratory distress, wheezes Cardiovascular Exam: Present: regular rate, normal rhythm GI/Abdominal exam: Present: soft. Absent: distended, tenderness, guarding Extremities exam: Present: normal inspection, normal capillary refill. Absent: pedal edema, calf tenderness Back exam: Present: tenderness, paraspinal tenderness (Right lumbar paraspinal tenderness, some bruising) Neurological exam: Present: alert, oriented X3, CN II-XII intact. Absent: motor sensory deficit Skin exam: Present: warm, dry, intact. Absent: cyanosis, diaphoretic Course Vital Signs 11/25/20 18:54 Temperature 98.6 F Pulse Rate 95 Respiratory 20 Rate Blood Pressure 146/81 O2 Sat by Pulse 98 Oximetry Medical Decision Making - Medical Decision Making 50-year-old female status post fall, patient has mild superficial abrasion left forehead and small ecchymosis in the right paraspinal region. X-ray of the lumbar sacral spine is performed which is negative for fracture subluxation. CT brain negative for intracranial hemorrhage or mass effect. Disposition Clinical Impression: Fall, Lumbar strain, Concussion Disposition: HOME SELF-CARE Condition: Fair Instructions (If sedation given, give patient instructions): Fall Prevention (ED), Concussion (ED), Low Back Strain (ED) Additional Instructions: Please follow up with her primary care physician, if you do not currently have a primary care physician U have been provided with to local physicians as possible reference. Is patient prescribed a controlled substance at d/c from ED?: No Referrals: None,Stated [Primary Care Provider] - 1-2 days Dameon Marroquin MD [REFERRING] - 1-2 days Time of Disposition: 21:27
--- NOTE | 2020-11-25 20:42 | CT ---
EXAMINATION TYPE: CT brain vickiine wo con DATE OF EXAM: 11/25/2020 COMPARISON: CT brain 12/09/2017 HISTORY: Fall with left frontal injury. CT DLP: 1577.3 mGycm Automated exposure control for dose reduction was used. There are large sulci in the parietal lobes bilaterally consistent with old encephalomalacia and infa rct. Ventricles are not significantly enlarged. There is no midline shift. There is no sign of intrac ranial hemorrhage. 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 The calvarium is intact. Skull b ase is intact. There is normal aeration of the mastoid sinuses. Cervical vertebra show some straightening. There is no significant disc space narrowing. There is ant erior mild spurring at C5-6 and C6-7. There is mild hypertrophic facet arthropathy. There is no compr ession fracture. IMPRESSION: Mild spondylotic changes in the lower cervical spine. No fracture. 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 No change compared to old exam. No acute intr acranial abnormality.
--- NOTE | 2020-11-25 20:44 | XR ---
EXAMINATION TYPE: XR lumbosacral spine min 4V DATE OF EXAM: 11/25/2020 COMPARISON: 12/12/2013 HISTORY: Back pain. Fall. TECHNIQUE: 5 views FINDINGS: Vertebra have normal alignment. There is slight narrowing at L4-5 disc. There is minor spur ring of the endplates. Posterior elements are intact. There is no compression fracture. Sacroiliac massiel ints are intact. IMPRESSION: Mild degenerative disc changes at L4-5. No fracture.
== END 2020-11-25 21:45 | disposition home or self-care (01) ==
LOC: EC 18:47
DX: S06.0X0A Concussion without loss of consciousness, initial encounter (principal); S39.012A Strain of muscle, fascia and tendon of lower back, initial encounter; S00.81XA Abrasion of other part of head, initial encounter; H40.9 Unspecified glaucoma; I10 Essential (primary) hypertension; Z88.0 Allergy status to penicillin; Z88.8 Allergy status to other drugs, medicaments and biological substances; Z79.899 Other long term (current) drug therapy; W01.198A Fall on same level from slipping, tripping and stumbling with subsequent striking against other object, initial encounter; Y92.009 Unspecified place in unspecified non-institutional (private) residence as the place of occurrence of the external cause
CPT/HCPCS: 70450; 72110; 72125; 99284

== ENCOUNTER → 2021-10-11 | Outpatient (CLI) | payer MEDICARE, OTHER ==
[2021-10-11 14:06] LABS: Basophils # (A) 0.02 X 10*3/uL (0.00-0.10); Basophils % (A) 0.3 %; Eosinophils # (A) 0.03 X 10*3/uL (0.04-0.35); Eosinophils % (A) 0.5 %; HCT 39.9 % (37.2-46.3); HGB 12.5 g/dL (12.0-15.0); Immature Grans, Automated 0.2 %; Lymphocytes # (A) 1.69 X 10*3/uL (0.90-5.00); Lymphocytes % (A) 27.9 %; MCH 29.8 pg (27.0-32.0); MCHC 31.3 g/dL (32.0-37.0); MCV 95.2 fL (80.0-97.0); Mean Platelet Volume 12.6 fL (9.5-12.2); Monocytes # (A) 0.34 X 10*3/uL (0.20-1.00); Monocytes % (A) 5.6 %; NRBC Per 100 WBC 0 /100 WBCS (0.0-0.0); Neutrophils # (A) 3.97 X 10*3/uL (1.80-7.70); Neutrophils % (A) 65.5 %; Platelet Count 211 X 10*3/uL (140-440); RBC 4.19 X 10*6/uL (4.10-5.20); RDW 11.7 % (11.5-14.5); WBC 6.06 X 10*3/uL (4.50-10.00)
[2021-10-11 15:39] LABS: ALT 23 U/L (8-44); AST 22 U/L (13-35); African American GFR (CKD) 86.7 (60.0-200.0); Albumin 4.2 g/dL (3.8-4.9); Albumin/Globulin Ratio 1.27 (1.60-3.17); Alkaline Phosphatase 73 U/L (41-126); Blood Urea Nitrogen 16.5 mg/dL (9.0-27.0); Calcium 9.8 mg/dL (8.7-10.3); Carbon Dioxide 23.7 mmol/L (20.0-27.5); Chloride 106 mmol/L (96-109); Globulin 3.3 g/dL (1.6-3.3); Glucose 92 mg/dL (70-110); Non-African American GFR(CKD) 74.8 (60.0-200.0); Potassium 4.6 mmol/L (3.5-5.5); Sodium 141 mmol/L (135-145); Total Protein 7.5 g/dL (6.2-8.2)
[2021-10-11 15:40] LABS: Chol/HDL Ratio 2.67 Ratio; LDL Cholesterol,Calculated 48.9 mg/dL (0.0-131.0)
[2021-10-11 20:56] LABS: Valproic Acid (Depakene) <2.8 ug/mL (50.0-100.0)
== END | disposition home or self-care (01) ==
LOC: LABWHC1 07:46
PROVIDERS: ATTEND Family Medicine
DX: G40.909 Epilepsy, unspecified, not intractable, without status epilepticus (principal); E78.5 Hyperlipidemia, unspecified; E03.9 Hypothyroidism, unspecified
CPT/HCPCS: 36415; 80053; 80061; 80164; 80177; 84439; 84443; 85025

== ENCOUNTER → 2021-12-06 | Outpatient (CLI) | payer MEDICARE, OTHER | END | disposition home or self-care (01) | LOC: LABWHC1 08:34 | PROVIDERS: ATTEND Psychiatry & Neurology Neurology | DX: G40.909 Epilepsy, unspecified, not intractable, without status epilepticus (principal) | CPT/HCPCS: 36415; 80177 ==

== ENCOUNTER → 2022-11-13 | Outpatient (CLI) | payer MEDICARE, OTHER | END | disposition home or self-care (01) | LOC: LABWHC1 07:49 | PROVIDERS: ATTEND Psychiatry & Neurology Neurology | DX: G40.909 Epilepsy, unspecified, not intractable, without status epilepticus (principal) | CPT/HCPCS: 36415; 80177 ==

== ENCOUNTER → 2022-11-26 | Outpatient (CLI) | payer MEDICARE, OTHER ==
[2022-11-26 11:25] LABS: Basophils # (A) 0.03 X 10*3/uL (0.00-0.10); Basophils % (A) 0.4 %; Eosinophils # (A) 0.04 X 10*3/uL (0.04-0.35); Eosinophils % (A) 0.6 %; HGB 14.4 d/dL (12.0-15.0); Lymphocytes # (A) 1.54 X 10*3/uL (0.90-5.00); Lymphocytes % (A) 23.1 %; MCH 30.8 pg (27.0-32.0); MCHC 33.5 d/dL (32.0-37.0); MCV 91.9 FL (80.0-97.0); Monocytes # (A) 0.38 X 10*3/uL (0.20-1.00); Monocytes % (A) 5.7 %; NRBC Per 100 WBC 0 X 10*3/uL (0.00-0.01); Neutrophils # (A) 4.66 X 10*3/uL (1.80-7.70); Neutrophils % (A) 69.9 %; Platelet Count 210 X 10*3/uL (140-440); RBC 4.68 X 10*6/uL (4.10-5.20); RDW 11.5 % (11.5-14.5); WBC 6.67 X 10*3/uL (4.50-10.00)
[2022-11-26 16:22] LABS: ALT 24 U/L (8-44); AST 24 U/L (13-35); Albumin 4.6 d/dL (3.8-4.9); Albumin/Globulin Ratio 1.53 Ratio (1.60-3.17); Alkaline Phosphatase 74 U/L (41-126); BUN/Creat Ratio 12.67 Ratio (12.00-20.00); Blood Urea Nitrogen 11.4 mg/dL (9.0-27.0); Carbon Dioxide 27.2 mmol/L (21.6-31.8); Chloride 104 mmol/L (96-109); Chol/HDL Ratio 1.94 Ratio; Glucose 95 mg/dL (70-110); Potassium 4.5 mmol/L (3.5-5.5); Sodium 143 mmol/L (135-145); T4, Free (Free Thyroxine) 2.14 ng/dL (0.80-1.80); Total Bilirubin 0.6 mg/dL (0.3-1.2); Total Protein 7.6 d/dL (6.2-8.2); VLDL Calculation 12.12 mg/dL (5.00-40.00)
== END | disposition home or self-care (01) ==
LOC: LABWHC1 07:27
PROVIDERS: ATTEND Family Medicine
DX: Z00.00 Encounter for general adult medical examination without abnormal findings (principal)
CPT/HCPCS: 36415; 80053; 80061; 84439; 84443; 85025

== ENCOUNTER → 2024-06-08 | Outpatient (CLI) | payer MEDICARE, OTHER ==
--- NOTE | 2024-06-10 19:12 | P.PCN ---
Date of Procedure: 06/08/24 Operative Findings: Home sleep study report Date of service is 06/08/2024 Pertinent history This is a 54-year-old female patient with known history of obstructive sleep apnea. The patient had moderate to severe disease with an AHI of 24 and she was diagnosed few years back and since her diagnosis, the patient was treated with CPAP therapy at a pressure of 8 cm of water. The patient remains compliant on the treatment. Noted since her last evaluation, the patient has lost significant amount of weight and her weight is down from 184 pounds to 157 pounds. Overall, she has lost more than 40 pounds. Based on her underlying weight loss, she was interested in eliminating CPAP therapy. Pertinent physical findings Body mass index is 30.7 Technical description The patient had a type III home sleep study. The [employer] system was used to complete his home sleep study. The total recording duration was 11 hours and 3 minutes. The study started at 8:02 PM and ended at 7:06 AM. There was a total of 10 hours and 51 minutes of flow evaluation and 10 hours and 46 minutes of oxygen saturation evaluation. Results The respiratory analysis showed a total of 29 obstructive apneas and 79 obstructive hypopneas. The resulting AHI was 9.9 Oxygenation analysis The baseline pulse ox while awake was 95%. Average pulse ox during sleep was 94% with a minimum pulse ox of 84%. This patient spent only 3 minutes of sleep time below pulse ox of 89% and there was only minimal amount of oxygen de saturation during the sleep. Cardiac summary Average heart rate was 62 with a minimum heart rate of 47 and the maximum heart rate of 97 Assessment Mild obstructive sleep apnea with an AHI of 9.9. Severity of sleep apnea is improved considerably with CPAP therapy as the patient's original RAMON was labeled to be moderate in severe with an AHI of 24 and the patient has improved significantly with weight loss. Plan Encouraged further weight loss may discontinue CPAP therapy the patient feels well rested and refreshed and well rested while off CPAP therapy. Maintain good sleep hygiene measures Will discuss the finding with the patient during her upcoming follow-up visit.
== END ==
LOC: 3 N SLEEP 17:03
PROVIDERS: ATTEND Internal Medicine Critical Care Medicine
DX: G47.33 Obstructive sleep apnea (adult) (pediatric) (principal); R63.4 Abnormal weight loss; Z88.0 Allergy status to penicillin; Z88.8 Allergy status to other drugs, medicaments and biological substances; Z68.43 Body mass index [BMI] 50.0-59.9, adult

== ENCOUNTER → 2024-09-19 | Outpatient (CLI) | payer MEDICARE, OTHER | END | disposition home or self-care (01) | LOC: LABWHC1 07:48 | PROVIDERS: ATTEND Psychiatry & Neurology Neurology | DX: G40.909 Epilepsy, unspecified, not intractable, without status epilepticus (principal) | CPT/HCPCS: 36415; 80177 ==